=== PATIENT | male | born 2000 | race Caucasian/White ===

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

== ENCOUNTER 2020-08-13 15:04 | Outpatient (CLI) | payer OTHER, SELFPAY ==
--- NOTE | 2020-08-13 15:18 | US_ITS ---
WS: [id number] SCROTAL ULTRASOUND EXAMINATION CLINICAL INFORMATION: RIGHT GROIN PAIN COMPARISON: None. FINDINGS: TESTES Normal in size and echotexture, without focal lesion. Color Doppler: Normal color Doppler flow pattern. Right testes size: 2.7 cm x 2.4 cm x 3.0 cm. Left testes size: 4.1 cm x 2.1 cm x 2.9 cm. EPIDIDYMIDES Normal in size and echotexture, without focal lesion. Color Doppler: Normal color Doppler flow pattern. Right epididymis size: cm x 0.9 cm x 0.9 cm. Left epididymitis size: cm x 0.7 cm x cm. HYDROCELE None. VARICOCELE Small bilateral varicoceles OTHER FINDINGS Small sliver of fluid along the lateral right testicle. US/US scrotum [id number] IMPRESSION: 1. Both testicles are normal in size and echotexture. Normal vascularity. 2. Normal epididymis. 3. Small bilateral varicoceles. 4. Small sliver of fluid along the right lateral testicle 5. No other significant findings.
== END 2020-08-13 15:05 | disposition home or self-care (01) ==
PROVIDERS: PCP Nurse Practitioner; Visit Provider Nurse Practitioner
DX: R10.31 Right lower quadrant pain (principal); I86.1 Scrotal varices
CPT/HCPCS: 76870

== ENCOUNTER 2021-09-18 23:43 | Emergency (ER) | payer OTHER, SELFPAY ==
[2021-09-18 23:48] VITALS: BP 157/93; PULSE 90; RESP 16; TEMP 37.3; O2SAT 97; BMI 25.0
[2021-09-19] VITALS (18 sets, daily range): BP systolic 138–166; BP diastolic 88–103; PULSE 83–86; RESP 16–18; TEMP 37.4; O2SAT 92–97
--- NOTE | 2021-09-19 00:09 | CTR_ITS ---
PROCEDURE INFORMATION: Exam: CT Abdomen And Pelvis With Contrast Exam date and time: 09/19/2021 12:47 AM Age: 20 years old Clinical indication: Abdominal pain; Acute; Additional info: Rlq pain TECHNIQUE: Imaging protocol: Computed tomography of the abdomen and pelvis with contrast. Radiation optimization: All CT scans at this facility use at least one of these dose optimization techniques: automated exposure control; mA and/or kV adjustment per patient size (includes targeted exams where dose is matched to clinical indication); or iterative reconstruction. Contrast material: OMNI 300; Contrast volume: 96 ml; Contrast route: INTRAVENOUS (IV); COMPARISON: US scrotum [id number] 08/13/2020 3:38 PM RADIATION DOSE METRICS: Total DLP (mGy-cm): 1281.12 FINDINGS: Liver: Normal. No mass. Gallbladder and bile ducts: Normal. No calcified stones. No ductal dilation. Pancreas: Normal. No ductal dilation. Spleen: Normal. No splenomegaly. Adrenal glands: Normal. No mass. Kidneys and ureters: Normal. No hydronephrosis. Stomach and bowel: Unremarkable. No obstruction. No mucosal thickening. Appendix: The appendix is visualized and is normal in configuration. Intraperitoneal space: Unremarkable. No free air. No significant fluid collection. Arteries: Unremarkable. No abdominal aortic aneurysm. Lymph nodes: There are small mesenteric lymph nodes seen in the right flank that are below CT criteria for lymphadenopathy. Mild mesenteric lymphadenitis cannot be entirely excluded. Urinary bladder: Unremarkable as visualized. Reproductive: Unremarkable as visualized. Bones/joints: Unremarkable. No acute fracture. Soft tissues: Unremarkable. CT/CT abdomen pelvis w con* [id number] IMPRESSION: There are no acute abdominal findings.
--- NOTE | 2021-09-19 00:13 | ED_ITS ---
HPI - Nausea/Vomiting/Diarrhea General: Chief complaint: Nausea/Vomiting/Diarrhea Stated complaint: ABD Pain Time Seen by Provider: 09/19/21 00:13 History of Present Illness: 20-year-old male patient comes in today with nausea vomiting diarrhea and fever since yesterday evening. Patient reports pain radiating into the right lower quadrant. Patient ambulates with some guarding. Patient appears nontoxic. Patient appears in mild pain. MD elicited complaint: nausea, vomiting, diarrhea and abdominal pain Onset (ago): day(s) Associated nausea: Yes Associated abdominal pain: Yes Location of pain: RLQ Radiation: RUQ Exacerbating factors: none Relieving factors: rest Associated symtoms: Reports nausea; Denies chest pain Review of Systems General: Reports: 10 or more systems reviewed and unremarkable except in HPI and below Const: Denies: fever(s) Card: Denies: chest pain Resp: Denies: dyspnea GI: Reports: abdominal pain, nausea, vomiting and diarrhea PFSH ED PFSH: Social History Smoking and tobacco status: never smoked Physical Exam Const: COMMON NORMALS: alert HENMT: COMMON NORMALS: normocephalic HEAD & SCALP: normocephalic Resp: COMMON NORMALS: normal respiratory effort and clear to auscultation bilaterally AUSCULTATION: clear to auscultation bilaterally Cardio: COMMON NORMALS: regular rate and regular rhythm RATE: regular rate RHYTHM: regular rhythm GI: AUSCULTATION: Yes normoactive bowel sounds PALPATION: Yes Tenderness to palpation present (GI) Details: RLQ, Yes Guarding due to palpation present (GI), No Abdominal wall crepitus present and No Rebound tenderness present PERCUSSION: normal to percussion : COMMON NORMALS: Yes no CVA tenderness BLADDER/KIDNEY EXAM: Yes no CVA tenderness Back/Pelvis: COMMON NORMALS: no CVA tenderness Extremity: COMMON NORMALS: normal to inspection and full ROM Neuro: SENSORIUM/ORIENTATION: Yes alert Psych: COMMON NORMALS: cooperative Skin: COMMON NORMALS: no rashes or lesions noted GENERAL SKIN EXAM: no rashes or lesions noted Course Vital Signs: Vital signs: Vital Signs Temperature 99.3 F 09/19/21 00:22 Pulse Rate 86 09/19/21 00:22 Respiratory Rate 16 09/19/21 01:06 Blood Pressure 166/94 09/19/21 02:05 Pulse Oximetry 97 09/19/21 02:05 MDM - Nausea/Vomiting/Diarrhea Medical Decision Making 20-year-old male patient comes in today with complaints of right lower quadrant abdominal pain, fever, nausea vomiting diarrhea. On exam patient has significant tenderness to the right lower quadrant, animal to no rebound tenderness, light guarding. Negative psoas sign. Differential diagnosis i ncludes but not limited to appendicitis, mesenteric adenitis, gastroenteritis. CT of the abdomen pelvis noted possible mesenteric adenitis but no signs of appendicitis or other infection. Patient was given 1 L of IV fluids, Zofran for nausea, and morphine 2 mg for pain. Patient had improvement of symptoms. CBC and CMP were unremarkable. Urinalysis was unremarkable. Recommended treatment for gastroenteritis and follow-up with primary care or return to the ER for worsening symptoms. Lab Data : 09/19/21 00:30 09/19/21 00:30 Radiology Impressions Abdomen/Pelvis CT 09/19/21 00:09 IMPRESSION: There are no acute abdominal findings. Laboratory Results WBC 8.8 10^3/uL (4.5-13.0) 09/19/21 00:30 RBC 5.03 10^6/uL (4.1-5.3) 09/19/21 00:30 Hgb 16.3 g/dL (11.7-16.6) 09/19/21 00:30 Hct 46.5 % (42.0-52.0) 09/19/21 00:30 MCV 92.4 fl (80-94) 09/19/21 00:30 MCH 32.4 pg (28.0-34.0) 09/19/21 00:30 MCHC 35.1 g/dL (30.0-36.0) 09/19/21 00:30 RDW 11.9 % (12.1-15.1) L 09/19/21 00:30 Plt Count 224 10^3/cmm (130-400) 09/19/21 00:30 MPV 9.1 fL (7.4-10.4) 09/19/21 00:30 Neut % (Auto) 71.8 % 09/19/21 00:30 Lymph % (Auto) 15.1 % 09/19/21 00:30 [place] % (Auto) 11.5 % 09/19/21 00:30 Eos % (Auto) 1.3 % 09/19/21 00:30 Baso % (Auto) 0.2 % 09/19/21 00:30 Neut # (Auto) 6.30 10^3/uL (1.8-8.0) 09/19/21 00:30 Lymph # (Auto) 1.3 10^3/uL (1.5-6.5) L 09/19/21 00:30 [place] # (Auto) 1.0 10^3/uL (0.2-0.9) H 09/19/21 00:30 Eos # (Auto) 0.1 10^3/uL (0.0-0.8) 09/19/21 00:30 Baso # (Auto) 0.0 10^3/uL (0.0-0.1) 09/19/21 00:30 Nucleated RBC % (auto) 0 % 09/19/21 00:30 Nucleated RBCs # 0.0 /100WBC 09/19/21 00:30 Sodium 138 mmol/L (136-145) 09/19/21 00:30 Potassium 3.5 mmol/L (3.5-5.1) 09/19/21 00:30 Chloride 99 mmol/L (98-107) 09/19/21 00:30 Carbon Dioxide 27 mmol/L (22-29) 09/19/21 00:30 Anion Gap 15.5 (5-19) 09/19/21 00:30 BUN 15 mg/dL (6-20) 09/19/21 00:30 Creatinine 0.9 mg/dL (0.7-1.2) 09/19/21 00:30 GFR Calculation 107.6 mL/min (90-130) 09/19/21 00:30 Glucose 119 mg/dL (65-115) H 09/19/21 00:30 Calculated Osmolality 288 mOsm/kg (285-295) 09/19/21 00:30 Calcium 9.1 mg/dL (8.5-10.5) 09/19/21 00:30 Total Bilirubin 0.9 mg/dL (0.15-1.2) 09/19/21 00:30 AST 14 U/L (0-40) 09/19/21 00:30 ALT 15 U/L (0-41) 09/19/21 00:30 Alkaline Phosphatase 90 IU/L (40-130) 09/19/21 00:30 Total Protein 6.9 g/dL (6.6-8.7) 09/19/21 00:30 Albumin 4.9 g/dL (3.5-5.2) 09/19/21 00:30 Globulin 2.0 g/dL (1.3-4.6) 09/19/21 00:30 Lipase 10 U/L (13-60) L 09/19/21 00:30 Urine Color Yellow (Yellow) 09/19/21 00:55 Urine Appearance Clear (CLEAR) 09/19/21 00:55 Urine pH 7 (5-7) 09/19/21 00:55 Ur Specific [place] 1.010 (1.005-1.030) 09/19/21 00:55 Urine Protein Neg (Negative) 09/19/21 00:55 Urine Glucose (UA) Norm (Normal) 09/19/21 00:55 Urine Ketones Negative (Negative) 09/19/21 00:55 Urine Blood Neg (Negative) 09/19/21 00:55 Urine Nitrate Negative (Negative) 09/19/21 00:55 Urine Bilirubin Neg (Negative) 09/19/21 00:55 Urine Urobilinogen 1 mg/dL (Negative) H 09/19/21 00:55 Ur Leukocyte Esterase Negative (Negative) 09/19/21 00:55 Discharge Plan Discharge Patient Disposition: Home Clinical Impression: Gastroenteritis Condition: Stable Prescriptions: New ondansetron 4 mg tablet,disintegrating 4 mg PO Q8H PRN (Reason: nausea and vomiting) Qty: 6 0RF Discharge Orders: Discharge ED (Routine); Ordered 09/19/21 Ordered By: Vipul Lutz Referrals: Estefani Modi, NUCLEAR ENGINEER-C [Primary Care Provider] - Discharge Diet: Usual diet Discharge Activity: Increase activity as tolerated Activity Restrictions/Additional Instructions: Home and rest. Drink plenty of fluids. Acetaminophen or ibuprofen for pain. Use ondansetron as needed for nausea and vomiting. Follow-up with primary care as needed. Return to ER for worsening symptoms such as high fever, uncontrolled pain, blood in vomit or stool. Coding Level of Care Code ED Carbon Paper Machine Operator for Chg Fwd Exam Comprehensive
[2021-09-19] MEDS: sodium chloride 0.9% 1,000 ML 999 ML IV (00:42)
[2021-09-19] MEDS: ondansetron 2 mg/ML SDV 2 mL 4 MG IVP (00:42)
[2021-09-19] MEDS: iohexol 300 mg/mL 100 mL Btl IV (00:47)
[2021-09-19 01:02] LABS: Basophils % 0.2 %; Eosinophils # 0.1 10^3/uL (0.0-0.8); Eosinophils % 1.3 %; Hematocrit 46.5 % (42.0-52.0); Hemoglobin 16.3 g/dL (11.7-16.6); Lymphocytes # 1.3 10^3/uL (1.5-6.5); Lymphocytes % 15.1 %; Mean Corpuscular HGB Conc 35.1 g/dL (30.0-36.0); Mean Corpuscular Hemoglobin 32.4 pg (28.0-34.0); Mean Corpuscular Volume 92.4 fl (80-94); Mean Platelet Volume 9.1 fL (7.4-10.4); Monocytes % 11.5 %; Neutrophils % 71.8 %; Nucleated Red Blood Cells % 0 %; Platelet Count 224 10^3/cmm (130-400); Red Blood Count 5.03 10^6/uL (4.1-5.3); Red Cell Distribution Width 11.9 % (12.1-15.1); White Blood Count 8.8 10^3/uL (4.5-13.0)
[2021-09-19 01:04] LABS: Add Urine Microscopic? NO; Charge for UA Resulting for Rev
[2021-09-19] MEDS: morphine 4 mg/mL SDV 1 mL 2 MG IVP (01:06)
[2021-09-19 01:07] LABS: Bilirubin Urine Neg (Negative); Blood Urine Neg (Negative); Glucose Urine UA Norm (Normal); Ketones Urine Negative (Negative); Leukocyte Esterase Urine Negative (Negative); Nitrate Urine Negative (Negative); Protein Urine Neg (Negative); Urine Appearance Clear (CLEAR); Urine Color Yellow (Yellow); Urobilinogen Urine 1 mg/dL (Negative); pH Urine 7 (5-7)
[2021-09-19 01:27] LABS: Alanine Aminotransferase 15 U/L (0-41); Albumin Level 4.9 g/dL (3.5-5.2); Alkaline Phosphatase 90 IU/L (40-130); Anion Gap 15.5 (5-19); Aspartate Amino Transferase 14 U/L (0-40); Blood Urea Nitrogen 15 mg/dL (6-20); Calcium 9.1 mg/dL (8.5-10.5); Carbon Dioxide 27 mmol/L (22-29); Chloride 99 mmol/L (98-107); Glomerular Filtration Rate 107.6 mL/min (90-130); Glucose 119 mg/dL (65-115); Lipase 10 U/L (13-60); Osmolality Calculated 288 mOsm/kg (285-295); Potassium 3.5 mmol/L (3.5-5.1); Sodium 138 mmol/L (136-145); Total Bilirubin 0.9 mg/dL (0.15-1.2); Total Protein 6.9 g/dL (6.6-8.7)
== END 2021-09-19 02:20 | disposition home or self-care (01) ==
PROVIDERS: Emergency Provider Nurse Practitioner Family; PCP Nurse Practitioner
DX: K52.9 Noninfective gastroenteritis and colitis, unspecified (principal)
CPT/HCPCS: 74177; 80053; 81003; 83690; 85025; 96361; 96374; 96375; 99284; J2270; J2405; J7030; Q9967

== ENCOUNTER 2023-05-03 17:46 | Emergency (ER) | payer OTHER, SELFPAY ==
[2023-05-03 18:02] VITALS: BP 140/90; PULSE 94; RESP 15; TEMP 37.1; O2SAT 100; BMI 26.4
--- NOTE | 2023-05-03 18:11 | ED_ITS ---
HPI - Headache General: Chief Complaint: Headache Stated Complaint: head pain Time Seen by Provider: 05/03/23 18:11 History of Present Illness: 22-year-old male patient comes in today with headache starting yesterday. Patient's had chills, sinus pressure, nausea, and occasional cough. Patient appears mildly unwell but not toxic. Patient reports no history of migraines. Associated symptoms: Reports nausea; Deny chest pain or rash Review of Systems General: Reports: 10 or more systems reviewed and unremarkable except in HPI and below Const: Reports: chills Eyes: Denies: change in vision ENMT: Denies: throat pain Card: Denies: chest pain Resp: Denies: dyspnea GI: Reports: nausea : Denies: difficulty urinating Musc: Denies: neck pain or back pain Skin/Breast: Denies: rash Neuro: Reports: headache(s) PFSH ED PFSH: Social History Smoking and tobacco/nicotine status: never used tobacco/nicotine Physical Exam Const: COMMON NORMALS: alert HENMT: COMMON NORMALS: normocephalic HEAD & SCALP: normocephalic NOSE: Nasal discharge present MOUTH: Normal oral and palatal mucosa present Neck/C-Spine: COMMON NORMALS: full ROM and no meningeal signs Resp: COMMON NORMALS: normal respiratory effort and clear to auscultation bilaterally AUSCULTATION: clear to auscultation bilaterally Cardio: COMMON NORMALS: regular rate and regular rhythm RATE: regular rate RHYTHM: regular rhythm GI: COMMON NORMALS: Soft to palpation and non-tender PALPATION: Yes Soft to palpation Back/Pelvis: COMMON NORMALS: thoracic and lumbar spine normal to inspection Extremity: COMMON NORMALS: normal to inspection and no pedal edema Neuro: SENSORIUM/ORIENTATION: Yes alert MENINGEAL SIGNS: Yes no meningeal signs Skin: COMMON NORMALS: turgor normal GENERAL SKIN EXAM: turgor normal Course Vital Signs: Vital signs: Vital Signs Temperature 98.7 F 05/03/23 18:02 Pulse Rate 94 05/03/23 18:02 Respiratory Rate 15 05/03/23 18:02 Blood Pressure 140/90 05/03/23 18:02 Pulse Oximetry 100 05/03/23 18:02 Oxygen Delivery Me thod Room Air 05/03/23 18:02 MDM - Headache Medical Decision Making 22-year-old male patient comes in today for complaints of severe headache starting yesterday. Patient reports some nausea but no vomiting. Patient appears unwell but not toxic. No nuchal rigidity is noted. Abdomen soft nontender. Posterior pharynx slightly erythematous. Patient has some nasal congestion. Patient has some sinus pressure on palpation. Bilateral TMs are normal. Vital signs are normal. Differential diagnosis includes but not limited to rhinosinusitis, migraine headache, upper respiratory infection, viral syndrome. Headache improved with medications. Patient had a bump in his white blood cell count 13,000, CRP was slightly elevated over 20 at 23. Believe the patient probably has a bacterial rhinosinusitis. Recommended antibiotic amoxicillin with potassium clavulanate 1 tablet 3 times a day for the next 5 days. Patient be kept on some prednisone to help with pain and inflammation. Reviewed exam recommendation for further treatment and follow-up. Patient and family both reported understanding. Lab Data 05/03/23 18:51 05/03/23 18:51 Laboratory Results WBC 13.26 10^3/uL (3.29-11.43) H 05/03/23 18:51 RBC 4.94 10^6/uL (3.85-5.65) 05/03/23 18:51 Hgb 16.00 g/dL (11.27-16.99) 05/03/23 18:51 Hct 46.6 % (37-53) 05/03/23 18:51 MCV 94.3 fl (82-101) 05/03/23 18:51 MCH 32.4 pg (27-33) 05/03/23 18:51 MCHC 34.3 g/dL (30-55) 05/03/23 18:51 RDW 12.1 % (12.1-15.1) 05/03/23 18:51 Plt Count 247 10^3/cmm (157-399) 05/03/23 18:51 MPV 8.8 fL (7.4-10.4) 05/03/23 18:51 Neut % (Auto) 78.6 % 05/03/23 18:51 Lymph % (Auto) 10.4 % 05/03/23 18:51 [place] % (Auto) 9.4 % 05/03/23 18:51 Eos % (Auto) 0.8 % 05/03/23 18:51 Baso % (Auto) 0.3 % 05/03/23 18:51 Neut # (Auto) 10.43 10^3/uL (1.8-7.7) H 05/03/23 18:51 Lymph # (Auto) 1.4 10^3/uL (0.8-4.8) 05/03/23 18:51 [place] # (Auto) 1.2 10^3/uL (0.2-0.9) H 05/03/23 18:51 Eos # (Auto) 0.1 10^3/uL (0.0-0.8) 05/03/23 18:51 Baso # (Auto) 0.0 10^3/uL (0.0-0.1) 05/03/23 18:51 Nucleated RBC % (auto) 0 % 05/03/23 18:51 Nucleated RBCs # 0.0 /100WBC 05/03/23 18:51 Sodium 134 mmol/L (136-145) L 05/03/23 18:51 Potassium 3.5 mmol/L (3.5-5.1) 05/03/23 18:51 Chloride 99 mmol/L (98-107) 05/03/23 18:51 Carbon Dioxide 20 mmol/L (22-29) L 05/03/23 18:51 Anion Gap 18.5 (5-19) 05/03/23 18:51 BUN 15 mg/dL (6-20) 05/03/23 18:51 Creatinine 0.8 mg/dL (0.7-1.2) 05/03/23 18:51 GFR Calculation 120.9 mL/min (90-130) 05/03/23 18:51 Glucose 100 mg/dL (65-115) 05/03/23 18:51 Calculated Osmolality 279 mOsm/kg (285-295) L 05/03/23 18:51 Calcium 9.5 mg/dL (8.5-10.5) 05/03/23 18:51 Total Bilirubin 0.5 mg/dL (0.15-1.2) 05/03/23 18:51 AST 18 U/L (0-40) 05/03/23 18:51 ALT 26 U/L (0-41) 05/03/23 18:51 Alkaline Phosphatase 109 U/L (40-130) 05/03/23 18:51 C-Reactive Protein 23.8 mg/L (0.0-4.9) H 05/03/23 18:51 Total Protein 7.1 g/dL (6.6-8.7) 05/03/23 18:51 Albumin 4.3 g/dL (3.5-5.2) 05/03/23 18:51 Globulin 2.8 g/dL (1.3-4.6) 05/03/23 18:51 No radiology studies performed this visit Discharge Plan Discharge Patient Disposition: Home Clinical Impression: Acute bacterial rhinosinusitis Condition: Stable Prescriptions: New amoxicillin-pot clavulanate 875-125 mg tablet 1 tab PO Q8H Qty: 15 0RF prednisone 20 mg tablet 20 mg PO DAILY 5 Days Qty: 5 0RF No Action ondansetron 4 mg tablet,disintegrating 4 mg PO Q8H PRN (Reason: nausea and vomiting) Qty: 6 0RF Discharge Orders: Discharge ED (Routine); Ordered 05/03/23 Ordered By: Vipul Lutz Referrals: Estefani Modi, TEVINC [Primary Care Provider] - Discharge Diet: Usual diet Discharge Activity: Increase activity as tolerated Patient Instructions: Rhinosinusitis (ED) Activity Restrictions/Additional Instructions: Home and rest. Drink plenty water and fluids. Take amoxicillin with potassium clavulanate 1 tablet 3 times a day for the next 5 days. Take prednisone 20 mg daily. Use acetaminophen and ibuprofen for pain and discomfort. Follow-up with primary care as needed. Return to ED for worsening symptoms such as persistent nausea and vomiting, Worsening headache, seizure episodes, or new concerns. Coding Level of Care Code ED Factory Superintendent for Phill Carter
[2023-05-03] MEDS: sodium chloride 0.9% 500 ML 999 ML IV (18:30)
[2023-05-03] MEDS: ketorolac 30 mg/mL INJ 15 MG IVP ×2 (18:31→19:58)
[2023-05-03] MEDS: dexamethasone 10 mg/mL INJ IVP (18:32)
[2023-05-03] MEDS: metoclopramide 5 mg/mL SDV 2 mL 10 MG IVP (18:33)
[2023-05-03] MEDS: diphenhydrAMINE 50 mg/mL SDV 1mL 12.5 MG IVP (18:34)
--- NOTE | 2023-05-03 18:38 | PC.NURSE ---
DALE PUSHED BY CAROLINA Feldman RN
[2023-05-03 19:08] LABS: Basophils % 0.3 %; Eosinophils # 0.1 10^3/uL (0.0-0.8); Eosinophils % 0.8 %; Hematocrit 46.6 % (37-53); Lymphocytes # 1.4 10^3/uL (0.8-4.8); Lymphocytes % 10.4 %; Mean Corpuscular HGB Conc 34.3 g/dL (30-55); Mean Corpuscular Hemoglobin 32.4 pg (27-33); Mean Corpuscular Volume 94.3 fl (82-101); Mean Platelet Volume 8.8 fL (7.4-10.4); Monocytes # 1.2 10^3/uL (0.2-0.9); Monocytes % 9.4 %; Neutrophils # 10.43 10^3/uL (1.8-7.7); Neutrophils % 78.6 %; Nucleated Red Blood Cells % 0 %; Platelet Count 247 10^3/cmm (157-399); Red Blood Count 4.94 10^6/uL (3.85-5.65); Red Cell Distribution Width 12.1 % (12.1-15.1); White Blood Count 13.26 10^3/uL (3.29-11.43)
[2023-05-03 19:29] LABS: Alanine Aminotransferase 26 U/L (0-41); Albumin Level 4.3 g/dL (3.5-5.2); Alkaline Phosphatase 109 U/L (40-130); Anion Gap 18.5 (5-19); Aspartate Amino Transferase 18 U/L (0-40); Blood Urea Nitrogen 15 mg/dL (6-20); C Reactive Protein 23.8 mg/L (0.0-4.9); Calcium 9.5 mg/dL (8.5-10.5); Carbon Dioxide 20 mmol/L (22-29); Chloride 99 mmol/L (98-107); Globulin 2.8 g/dL (1.3-4.6); Glomerular Filtration Rate 120.9 mL/min (90-130); Glucose 100 mg/dL (65-115); Osmolality Calculated 279 mOsm/kg (285-295); Potassium 3.5 mmol/L (3.5-5.1); Sodium 134 mmol/L (136-145); Total Bilirubin 0.5 mg/dL (0.15-1.2); Total Protein 7.1 g/dL (6.6-8.7)
[2023-05-03] MEDS: amoxicillin-clav 875-125 mg Tablet 1 TAB PO (19:58)
--- NOTE | 2023-05-03 19:59 | PC.NURSE ---
TORADOL PUSHED BY MELANIE BROOKS
[2023-05-03 20:59] LABS: Adenovirus Not Detected (NOT DETECT); Chlamydia Pneumoniae Not Detected (NOT DETECT); Coronavirus 229E,HKU1,NL63,OC4 Not Detected (NOT DETECT); Human Metapneumovirus Not Detected (NOT DETECT); Human Rhinovirus/Enterovirus Detected (NOT DETECT); Influenza A Not Detected (NOT DETECT); Influenza A H1 Not Detected (NOT DETECT); Influenza A H1-2009 Not Detected (NOT DETECT); Influenza A H3 Not Detected (NOT DETECT); Influenza B Not Detected (NOT DETECT); Mycoplasma Pneumoniae Not Detected (NOT DETECT); Parainfluenza Virus Type 1 Not Detected (NOT DETECT); Parainfluenza Virus Type 2 Not Detected (NOT DETECT); Parainfluenza Virus Type 3 Not Detected (NOT DETECT); Parainfluenza Virus Type 4 Not Detected (NOT DETECT); Respiratory Syncytial Virus A Not Detected (NOT DETECT); Respiratory Syncytial Virus B Not Detected (NOT DETECT); SARS-COV-2 Not Detected (NOT DETECT)
== END 2023-05-03 20:06 | disposition home or self-care (01) ==
PROVIDERS: Emergency Provider Nurse Practitioner Family; PCP Nurse Practitioner
DX: J01.80 Other acute sinusitis (principal); B96.89 Other specified bacterial agents as the cause of diseases classified elsewhere
CPT/HCPCS: 36415; 80053; 85025; 86140; 87486; 87581; 87633; 96374; 96375; 96376; 99284; J1100; J1200; J1885; J2765; J7040